=== PATIENT | male | born 1935 | race Caucasian/White ===

== ENCOUNTER 2017-07-17 22:10 | Emergency (ER) | payer MEDICARE, BC ==
[2017-07-17] MEDS ORDERED: Albuterol/Ipratropium 3.0-0.5 MG/3 ML Neb Soln NEB ONE (22:17)
[2017-07-17] MEDS ORDERED: methylPREDNISolone Sodium Succinate 125 MG/2 ML SDV IVPUSH ONE (22:17)
--- NOTE | 2017-07-17 22:24 | EDM.PDOC ---
ED HPI GENERAL MEDICAL PROBLEM - General Chief Complaint: Respiratory Problem Stated Complaint: COUGHING RATTLE IN CHEST, [id number] Time Seen by Provider: 07/17/17 22:21 Source of Information: Reports: Patient History Limitations: Reports: No Limitations - History of Present Illness INITIAL COMMENTS - FREE TEXT/NARRATIVE: sick for 1 week coughing not getting better feels worse. - Related Data Allergies Allergy/AdvReac Type Severity Reaction Status Date / Time iopamidol [From Isovue-M] Allergy Hives Verified 07/17/17 22:33 Tetracyclines Allergy Cannot Verified 07/17/17 22:33 Remember Home Meds: Home Meds Ca Carbonate/Vitamin D3/Vit K [Calcium + D Soft Chewable Tab] 1 tab PO DAILY 04/12 [History] Lisinopril [Prinivil] 10 mg PO DAILY 09/05/14 [History] Rosuvastatin Calcium [Crestor] 10 mg PO DAILY 09/05/14 [History] Lutein/Minerals/Vit A,C & E [Ocuvite] 1 cap PO DAILY 10/06/14 [History] Levothyroxine 75 mcg PO ACBREAKFAST 07/17/17 [History] Social & Family History - Tobacco Use Smoking Status *Q: Never Smoker Second Hand Smoke Exposure: No - Alcohol Use Days Per Week of Alcohol Use: 1 (socially) - Recreational Drug Use Recreational Drug Use: No - Living Situation & Occupation Living situation: Reports: , Alone Occupation: Retired ED ROS GENERAL - Review of Systems Review Of Systems: ROS reveals no pertinent complaints other than HPI. ED EXAM, GENERAL - Physical Exam Exam: See Below Exam Limited By: No Limitations General Appearance: Alert, WD/WN, Mild Distress, Other (cough spasm) Ears: Hearing Grossly Normal Throat/Mouth: Normal Voice, No Airway Compromise Head: Atraumatic Neck: Non-Tender, Full Range of Motion Respiratory/Chest: No Accessory Muscle Use, Rales, Rhonchi, Wheezing. No: Retractions, Splinting Cardiovascular: Regular Rate, Rhythm GI/Abdominal: Soft, Non-Tender Extremities: Pedal Edema, Other (1+) Neurological: Alert, Oriented, Normal Cognition, Normal Gait, No Motor/Sensory Deficits Psychiatric: Flat Affect Skin Exam: Warm, Dry, Normal Color Lymphatic: No Adenopathy Course - Vital Signs Last Recorded V/S: Last Vital Signs Temp 36.6 C 07/17/17 23:37 Pulse 80 07/17/17 23:37 Resp 20 07/17/17 23:37 BP 112/60 07/17/17 23:37 Pulse Ox 91 L 07/17/17 23:37 - Orders/Labs/Meds Orders: Active Orders 24 hr Category Date Time Status RT Aerosol Therapy [RC] ASDIRECTED Care 07/17/17 22:18 Active CULTURE BLOOD [BC] Stat Lab 07/17/17 22:18 Received Labs: Laboratory Tests 07/17/17 07/17/17 07/17/17 Range/Units 22:18 22:18 22:18 WBC 11.4 H (5.0-10.0) 10^3/uL RBC 4.52 L (4.6-6.2) 10^6/uL Hgb 13.8 L (14.0-18.0) g/dL Hct 41.2 (40.0-54.0) % MCV 91.2 (80-100) fL MCH 30.5 (27.0-34.0) pg MCHC 33.5 (33.0-35.0) g/dL Plt Count 223 (150-450) 10^3/uL Neut % (Auto) 58.1 (42.2-75.2) % Lymph % (Auto) 28.8 (20.5-50.1) % [place] % (Auto) 9.1 H (2-8) % Eos % (Auto) 3.7 H (1.0-3.0) % Baso % (Auto) 0.3 (0.0-1.0) % Sodium 138 (135-145) mmol/L Potassium 3.7 (3.6-5.0) mmol/L Chloride 102 (101-111) mmol/L Carbon Dioxide 27.0 (21.0-31.0) mmol/L Anion Gap 12.7 BUN 13 (7-18) mg/dL Creatinine 0.8 (0.6-1.3) mg/dL Est Cr Clr Drug Dosing 75.44 mL/min Estimated GFR (MDRD) > 60 BUN/Creatinine Ratio 16.25 Glucose 119 H (74-105) mg/dL Lactic Acid 1.6 (0.5-2.2) mmol/L Calcium 9.1 (8.4-10.2) mg/dl Total Bilirubin 0.5 (0.2-1.0) mg/dL AST 22 (10-42) IU/L ALT 11 (10-60) IU/L Alkaline Phosphatase 64 (42-121) IU/L Troponin I < 0.02 (0.00-0.02) ng/ml B-Natriuretic Peptide 51 (0-100) pg/ml Total Protein 7.5 (6.7-8.2) g/dl Albumin 4.2 (3.2-5.5) g/dl Globulin 3.3 Albumin/Globulin Ratio 1.27 Meds: Medications Discontinued Medications Generic Name Dose Route Start Last Admin Trade Name Freq PRN Reason Stop Dose Admin Albuterol/Ipratropium 3 ml 07/17/17 22:17 07/17/17 22:22 Duoneb 3.0-0.5 Mg/3 Ml NEB 07/17/17 22:18 3 ml ONETIME ONE Administration Ceftriaxone Sodium 1 gm 07/17/17 23:12 07/17/17 23:21 Rocephin IVPUSH 07/17/17 23:13 1 gm ONETIME ONE Administration Methylprednisolone Sodium Succinate 125 mg 07/17/17 22:17 07/17/17 22:25 Solu-Medrol IVPUSH 07/17/17 22:18 125 mg ONETIME ONE Administration - Re-Assessments/Exams Free Text/Narrative Re-Assessment/Exam: 07/17/17 23:14 results discussed with pt & family. pt feeling better s/p duoneb + IV solumed Departure - Departure Time of Disposition: 22:20 Disposition: Home, Self-Care 01 Condition: Good Clinical Impression: Acute bronchitis with bronchospasm - Discharge Information Instructions: Acute Bronchitis, [id number] Forms: ED Department Discharge Additional Instructions: 1) rest as much as possible 2) don't sleep flat at night 3) use humidifier in room 4) drink lots of liquids 5) recheck if there is any change or concern rx given; z-tanner medrol dospak albuterol 2.5mg solution tid prn - My Orders Last 24 Hours: My Active Orders 07/17/17 22:18 RT Aerosol Therapy [RC] ASDIRECTED CULTURE BLOOD [BC] Stat - Assessment/Plan Last 24 Hours: My Active Orders 07/17/17 22:18 RT Aerosol Therapy [RC] ASDIRECTED CULTURE BLOOD [BC] Stat
[2017-07-17 22:48] LABS: ANION GAP 12.7; CHLORIDE,CL 102 mmol/L (101-111); SODIUM,NA 138 mmol/L (135-145)
[2017-07-17] MEDS ORDERED: cefTRIAXone 1 GM Vial IVPUSH ONE (23:12)
[2017-07-17 23:38] VITALS: BP 112/60
== END 2017-07-17 23:46 | disposition home or self-care (01) ==
LOC: DL.ED 22:10
DX: J20.9 Acute bronchitis, unspecified (principal); R06.02 Shortness of breath; Z79.899 Other long term (current) drug therapy; Z88.1 Allergy status to other antibiotic agents; Z91.041 Radiographic dye allergy status
CPT/HCPCS: 36415; 71045; 80053; 83605; 83880; 84484; 85025; 87040; 94640; 96374; 99284; J0696; J2930

== ENCOUNTER 2018-10-01 20:08 | Emergency (ER) | payer MEDICARE, BC ==
[2018-10-01 20:19] VITALS: BP 154/94
--- NOTE | 2018-10-01 20:51 | EDM.PDOC ---
ED HPI GENERAL MEDICAL PROBLEM - General Chief Complaint: Respiratory Problem Stated Complaint: BREATHING TROUBLE Time Seen by Provider: 10/01/18 20:40 Source of Information: Reports: Patient History Limitations: Reports: No Limitations - History of Present Illness INITIAL COMMENTS - FREE TEXT/NARRATIVE: This 83 yo male patient reports to the ED due to increased weakness and a cough. The patient reports his weakness started today, but the cough has been getting worse over the past week. The patient reports he has not been into his primary care facility for his current symptoms. Onset: Today (weakness) Duration: Week(s): (1 week for cough) Location: Reports: Generalized Quality: Reports: Other Severity: Moderate Improves with: Reports: None Worsens with: Reports: None Associated Symptoms: Reports: Cough - Related Data Allergies Allergy/AdvReac Type Severity Reaction Status Date / Time iopamidol [From Isovue-M] Allergy Hives Verified 10/01/18 20:20 Tetracyclines Allergy Cannot Verified 10/01/18 20:20 Remember Home Meds: Home Meds Ca Carbonate/Vitamin D3/Vit K [Calcium + D Soft Chewable Tab] 1 tab PO DAILY 04/12 [History] Lisinopril [Prinivil] 10 mg PO DAILY 09/05/14 [History] Rosuvastatin Calcium [Crestor] 10 mg PO DAILY 09/05/14 [History] Lutein/Minerals/Vit A,C & E [Ocuvite] 1 cap PO DAILY 10/06/14 [History] Levothyroxine 75 mcg PO ACBREAKFAST 07/17/17 [History] Past Medical History Cardiovascular History: Reports: High Cholesterol, Hypertension Respiratory History: Reports: Bronchitis, Recurrent, Pneumonia, Recurrent Endocrine/Metabolic History: Reports: Hypothyroidism Social & Family History - Family History Family Medical History: Noncontributory - Tobacco Use Smoking Status *Q: Never Smoker Second Hand Smoke Exposure: No - Caffeine Use Caffeine Use: Reports: Coffee - Recreational Drug Use Recreational Drug Use: No - Living Situation & Occupation Living situation: Reports: , Alone Occupation: Retired ED ROS GENERAL - Review of Systems Review Of Systems: ROS reveals no pertinent complaints other than HPI. ED EXAM, GENERAL - Physical Exam Exam: See Below Exam Limited By: No Limitations General Appearance: Alert, WD/WN, Moderate Distress Eye Exam: Bilateral Eye: EOMI, Normal Inspection, PERRL Ears: Normal External Exam, Normal Canal, Hearing Grossly Normal, Normal TMs Nose: Normal Inspection, Normal Mucosa, No Blood Throat/Mouth: Normal Inspection, Normal Lips, Normal Teeth, Normal Gums, Normal Oropharynx, Normal Voice, No Airway Compromise Head: Atraumatic, Normocephalic Neck: Normal Inspection, Supple, Non-Tender, Full Range of Motion Respiratory/Chest: Decreased Breath Sounds, Rhonchi (diffuse) Cardiovascular: Normal Peripheral Pulses, Regular Rate, Rhythm, No Gallop, No JVD, No Murmur, No Rub GI/Abdominal: Normal Bowel Sounds, Soft, Non-Tender, No Organomegaly, No Distention, No Abnormal Bruit, No Mass (Male) Exam: Deferred Rectal (Males) Exam: Deferred Back Exam: Normal Inspection, Full Range of Motion, NT Extremities: Normal Range of Motion, Non-Tender, Normal Capillary Refill, Pedal Edema (2+) Neurological: Alert, Oriented, CN II-XII Intact, Normal Cognition, Normal Gait, Normal Reflexes, No Motor/Sensory Deficits Psychiatric: Normal Affect, Normal Mood Skin Exam: Warm, Dry, Intact, Normal Color, No Rash Lymphatic: No Adenopathy Course - Vital Signs Last Recorded V/S: Last Vital Signs Temp 36.8 C 10/01/18 21:13 Pulse 94 10/01/18 20:13 Resp 20 10/01/18 20:13 BP 154/94 H 10/01/18 20:13 Pulse Ox 96 10/01/18 20:21 - Orders/Labs/Meds Orders: Active Orders 24 hr Category Date Time Status EKG Documentation Completion [RC] URGENT Care 10/01/18 20:42 Ordered RT Aerosol Therapy [RC] ASDIRECTED Care 10/01/18 21:11 Ordered CULTURE BLOOD [BC] Stat Lab 10/01/18 20:16 Ordered Labs: Laboratory Tests 10/01/18 10/01/18 10/01/18 Range/Units 20:35 20:35 20:35 WBC 9.6 (5.0-10.0) 10^3/uL RBC 4.68 (4.6-6.2) 10^6/uL Hgb 14.6 (14.0-18.0) g/dL Hct 42.9 (40.0-54.0) % MCV 91.7 (80-100) fL MCH 31.2 (27.0-34.0) pg MCHC 34.0 (33.0-35.0) g/dL Plt Count 193 (150-450) 10^3/uL Neut % (Auto) 67.4 (42.2-75.2) % Lymph % (Auto) 20.6 (20.5-50.1) % [place] % (Auto) 9.8 H (2-8) % Eos % (Auto) 2.0 (1.0-3.0) % Baso % (Auto) 0.2 (0.0-1.0) % Sodium 135 (135-145) mmol/L Potassium 3.7 (3.6-5.0) mmol/L Chloride 100 L (101-111) mmol/L Carbon Dioxide 24.0 (21.0-31.0) mmol/L Anion Gap 14.7 BUN 14 (7-18) mg/dL Creatinine 0.8 (0.6-1.3) mg/dL Est Cr Clr Drug Dosing 74.10 mL/min Estimated GFR (MDRD) > 60 BUN/Creatinine Ratio 17.50 Glucose 119 H (74-105) mg/dL Lactic Acid 1.2 (0.5-2.2) mmol/L Calcium 8.9 (8.4-10.2) mg/dl Total Bilirubin 0.7 (0.2-1.0) mg/dL AST 26 (10-42) IU/L ALT 15 (10-60) IU/L Alkaline Phosphatase 65 (42-121) IU/L Troponin I (0.00-0.02) ng/ml B-Natriuretic Peptide (0-100) pg/ml Total Protein 7.5 (6.7-8.2) g/dl Albumin 4.2 (3.2-5.5) g/dl Globulin 3.3 Albumin/Globulin Ratio 1.27 10/01/18 10/01/18 Range/Units 20:35 20:35 WBC (5.0-10.0) 10^3/uL RBC (4.6-6.2) 10^6/uL Hgb (14.0-18.0) g/dL Hct (40.0-54.0) % MCV (80-100) fL MCH (27.0-34.0) pg MCHC (33.0-35.0) g/dL Plt Count (150-450) 10^3/uL Neut % (Auto) (42.2-75.2) % Lymph % (Auto) (20.5-50.1) % [place] % (Auto) (2-8) % Eos % (Auto) (1.0-3.0) % Baso % (Auto) (0.0-1.0) % Sodium (135-145) mmol/L Potassium (3.6-5.0) mmol/L Chloride (101-111) mmol/L Carbon Dioxide (21.0-31.0) mmol/L Anion Gap BUN (7-18) mg/dL Creatinine (0.6-1.3) mg/dL Est Cr Clr Drug Dosing mL/min Estimated GFR (MDRD) BUN/Creatinine Ratio Glucose (74-105) mg/dL Lactic Acid (0.5-2.2) mmol/L Calcium (8.4-10.2) mg/dl Total Bilirubin (0.2-1.0) mg/dL AST (10-42) IU/L ALT (10-60) IU/L Alkaline Phosphatase (42-121) IU/L Troponin I < 0.02 (0.00-0.02) ng/ml B-Natriuretic Peptide 55 (0-100) pg/ml Total Protein (6.7-8.2) g/dl Albumin (3.2-5.5) g/dl Globulin Albumin/Globulin Ratio Meds: Medications Discontinued Medications Generic Name Dose Route Start Last Admin Trade Name Freq PRN Reason Stop Dose Admin Albuterol/Ipratropium 3 ml 10/01/18 21:11 10/01/18 21:14 Duoneb 3.0-0.5 Mg/3 Ml NEB 10/01/18 21:12 3 ml ONETIME ONE Administration Levofloxacin/Dextrose 500 mg/ 100 mls @ 100 mls/hr 10/01/18 21:13 10/01/18 21 :18 Premix IV 10/01/18 22:12 100 mls/hr ONETIME ONE Administration - Re-Assessments/Exams Free Text/Narrative Re-Assessment/Exam: 10/01/18 21:40 The patient was advised of the examination, lab and x-ray results during the visit. The patient was encouraged to allow us to admit him to the hospital for IV antibiotics, but the patient would prefer to be treated on an outpatient basis. The patient was given a nebulizer treatment while in the ED and an IV dose of Levaquin while in the ED. Departure - Departure Time of Disposition: 22:20 Disposition: Home, Self-Care 01 Condition: Fair Clinical Impression: Bronchitis - Discharge Information *PRESCRIPTION DRUG MONITORING PROGRAM REVIEWED*: Not Applicable *COPY OF PRESCRIPTION DRUG MONITORING REPORT IN PATIENT TK: Not Applicable Instructions: Acute Bronchitis, Adult, [id number] Forms: ED Department Discharge Care Plan Goals: The patient was advised of the examination, lab and x-ray results during the visit. The patient was given an IV dose of Levaquin while in the ED. The patient was discharged with a script for Levaquin (500 mg) #5 to take 1 by mouth daily for 5 days. If the patient has any additional symptoms or concerns, the patient was advised to either return to the emergency department or visit his primary care facility. - My Orders Last 24 Hours: My Active Orders 10/01/18 20:16 CULTURE BLOOD [BC] Stat 10/01/18 20:42 EKG Documentation Completion [RC] URGENT 10/01/18 21:11 RT Aerosol Therapy [RC] ASDIRECTED - Assessment/Plan Last 24 Hours: My Active Orders 10/01/18 20:16 CULTURE BLOOD [BC] Stat 10/01/18 20:42 EKG Documentation Completion [RC] URGENT 10/01/18 21:11 RT Aerosol Therapy [RC] ASDIRECTED
[2018-10-01 21:01] LABS: ANION GAP 14.7; CHLORIDE,CL 100 mmol/L (101-111); SODIUM,NA 135 mmol/L (135-145)
[2018-10-01] MEDS ORDERED: Albuterol/Ipratropium 3.0-0.5 MG/3 ML Neb Soln NEB ONE (21:11)
[2018-10-01] MEDS ORDERED: Levofloxacin/Dextrose 5%-Water 500 MG in Premix Bag 1 BAG IV ONE (21:13)
== END 2018-10-01 22:25 | disposition home or self-care (01) ==
LOC: DL.ED 20:08
DX: J40 Bronchitis, not specified as acute or chronic (principal); I10 Essential (primary) hypertension; E03.9 Hypothyroidism, unspecified; E78.00 Pure hypercholesterolemia, unspecified; Z79.899 Other long term (current) drug therapy; Z88.1 Allergy status to other antibiotic agents; Z88.8 Allergy status to other drugs, medicaments and biological substances
CPT/HCPCS: 36415; 71046; 80053; 83605; 83880; 84484; 85025; 87040; 87804; 93005; 96365; 99283; J1956; J7620-GY

== ENCOUNTER 2019-04-04 17:50 | Observation (INO) | payer MEDICARE, BC ==
[2019-04-04] MEDS ORDERED: Sodium Chloride 0.9% 10 ML Syringe FLUSH PRN ×3 (18:15→20:47)
[2019-04-04 19:02] LABS: ANION GAP 13.8; CHLORIDE,CL 97 mmol/L (101-111); SODIUM,NA 135 mmol/L (135-145)
[2019-04-04] MEDS ORDERED: Albuterol/Ipratropium 3.0-0.5 MG/3 ML Neb Soln NEB ONE (19:16)
[2019-04-04] MEDS ORDERED: cefTRIAXone 1 GM in Sodium Chloride 0.9% 50 ML IV ONE (20:13)
[2019-04-04] MEDS ORDERED: Acetaminophen 325 MG Tab PO PRN (20:46)
[2019-04-04] MEDS ORDERED: Ondansetron 4 MG/2 ML SDV IV PRN (20:46)
[2019-04-04] MEDS ORDERED: [UNRECOGNIZED DRUG - OTHER] PO PRN (20:48)
[2019-04-04] MEDS ORDERED: D METHORPHAN PO PRN (20:48)
[2019-04-04] MEDS ORDERED: ACETAMINOPHEN PO PRN (20:48)
--- NOTE | 2019-04-04 21:03 | PCM.HP ---
H&P History of Present Illness - General Date of Service: 04/04/19 Admit Problem/Dx: Admission Diagnosis/Problem Admission Diagnosis/Problem Pneumonia Source of Information: Patient History Limitations: Reports: No Limitations - History of Present Illness Initial Comments - Free Text/Narative: 83 yo M with PMH of HTN, HLD, hypothyroidism, mild dementia who p/w shortness of breath, cough Cough and shortness of breath started two weeks ago Cough is associated with scanty white sputum Also associated pleuritic chest pain No fever, no chills or rigors No abdominal pain, no n/v, no urinary symptoms In the ED, labwork showed leucocytosis and CXR showed right middle lobe opacity Patient was not hypoxic on room air. Chest Pain Score (Numeric/FACES): 5 - Related Data Allergies/Adverse Reactions: Allergies Allergy/AdvReac Type Severity Reaction Status Date / Time iopamidol [From Isovue-M] Allergy Hives Verified 04/04/19 18:02 Tetracyclines Allergy Cannot Verified 04/04/19 18:02 Remember Home Medications: Home Meds Lisinopril [Prinivil] 10 mg PO DAILY 09/05/14 [History] Rosuvastatin Calcium [Crestor] 10 mg PO DAILY 09/05/14 [History] Levothyroxine 75 mcg PO ACBREAKFAST 07/17/17 [History] Azithromycin 250 mg PO DAILY 04/04/19 [History] Benzonatate [Tessalon Perle] 100 mg PO DAILY 04/04/19 [History] D-Methorphan/PE/Acetaminophen [Daytime Cold-Flu Relief Liquid] 30 ml PO Q6H 01/14 [History] Past Medical History HEENT History: Reports: None Cardiovascular History: Reports: High Cholesterol, Hypertension Respiratory History: Reports: Bronchitis, Recurrent, Pneumonia, Recurrent Gastrointestinal History: Reports: None Genitourinary History: Reports: None Musculoskeletal History: Reports: None Neurological History: Reports: None Psychiatric History: Reports: None Endocrine/Metabolic History: Reports: Hypothyroidism Hematologic History: Reports: None Immunologic History: Reports: None Oncologic (Cancer) History: Reports: None Dermatologic History: Reports: None - Infectious Disease History Infectious Disease History: Reports: None - Past Surgical History Head Surgeries/Procedures: Reports: None GI Surgical History: Reports: Hernia, Abdominal Social & Family History - Family History Family Medical History: Noncontributory - Tobacco Use Smoking Status *Q: Never Smoker - Caffeine Use Caffeine Use: Reports: Coffee - Recreational Drug Use Recreational Drug Use: No - Living Situation & Occupation Living situation: Reports: , Alone Occupation: Retired H&P Review of Systems - Review of Systems: Review Of Systems: See Below General: Denies: Fever HEENT: Reports: No Symptoms Pulmonary: Reports: Shortness of Breath, Pleuritic Chest Pain, Cough Cardiovascular: Reports: No Symptoms Gastrointestinal: Reports: No Symptoms Genitourinary: Reports: No Symptoms Musculoskeletal: Reports: No Symptoms Skin: Reports: No Symptoms Neurological: Reports: No Symptoms Exam - Exam Exam: See Below - Vital Signs Vital Signs: Last Vital Signs Temp 36.1 C 04/04/19 17:58 Pulse 71 04/04/19 17:58 Resp 20 04/04/19 17:58 BP 134/77 04/04/19 17:58 Pulse Ox 99 04/04/19 17:58 Weight: 83.37 kg - Exam General: Alert, Oriented HEENT: Conjunctiva Clear, Pupils Equal, Pupils Reactive Neck: Supple, Trachea Midline Lungs: Clear to Auscultation, Normal Respiratory Effort Cardiovascular: Regular Rate, Regular Rhythm GI/Abdominal Exam: Normal Bowel Sounds, Soft, Non-Tender, No Organomegaly Extremities: Normal Inspection, Normal Range of Motion, Non-Tender, No Pedal Edema - Patient Data Lab Results Last 24 hrs: Laboratory Results - last 24 hr 04/04/19 04/04/19 04/04/19 Range/Units 18:35 18:35 18:35 WBC 11.5 H (5.0-10.0) 10^3/uL RBC 4.46 L (4.6-6.2) 10^6/uL Hgb 13.6 L (14.0-18.0) g/dL Hct 40.7 (40.0-54.0) % MCV 91.3 (80-100) fL MCH 30.5 (27.0-34.0) pg MCHC 33.4 (33.0-35.0) g/dL Plt Count 218 (150-450) 10^3/uL Neut % (Auto) 68.7 (42.2-75.2) % Lymph % (Auto) 15.8 L (20.5-50.1) % [place] % (Auto) 11.2 H (2-8) % Eos % (Auto) 3.9 H (1.0-3.0) % Baso % (Auto) 0.4 (0.0-1.0) % Sodium 135 (135-145) mmol/L Potassium 3.8 (3.6-5.0) mmol/L Chloride 97 L (101-111) mmol/L Carbon Dioxide 28.0 (21.0-31.0) mmol/L Anion Gap 13.8 BUN 14 (7-18) mg/dL Creatinine 0.9 (0.6-1.3) mg/dL Est Cr Clr Drug Dosing 65.86 mL/min Estimated GFR (MDRD) > 60 BUN/Creatinine Ratio 15.55 Glucose 109 H (74-105) mg/dL Lactic Acid 1.1 (0.5-2.2) mmol/L Calcium 8.5 (8.4-10.2) mg/dl Total Bilirubin 0.6 (0.2-1.0) mg/dL AST 15 (10-42) IU/L ALT 9 L (10-60) IU/L Alkaline Phosphatase 54 (42-121) IU/L Troponin I < 0.02 (0.00-0.02) ng/ml B-Natriuretic Peptide 32 (0-100) pg/ml Total Protein 7.0 (6.7-8.2) g/dl Albumin 3.7 (3.2-5.5) g/dl Globulin 3.3 Albumin/Globulin Ratio 1.12 Urine Color (YELLOW) Urine Appearance (CLEAR) Urine pH (5.0-9.0) Ur Specific [place] (1.005-1.030) Urine Protein (NEGATIVE) Urine Glucose (UA) (NEGATIVE) Urine Ketones (NEGATIVE) Urine Occult Blood (NEGATIVE) Urine Nitrite (NEGATIVE) Urine Bilirubin (NEGATIVE) Urine Urobilinogen (0.2-1.0) mg/dL Ur Leukocyte Esterase (NEGATIVE) 04/04/19 Range/Units 19:38 WBC (5.0-10.0) 10^3/uL RBC (4.6-6.2) 10^6/uL Hgb (14.0-18.0) g/dL Hct (40.0-54.0) % MCV (80-100) fL MCH (27.0-34.0) pg MCHC (33.0-35.0) g/dL Plt Count (150-450) 10^3/uL Neut % (Auto) (42.2-75.2) % Lymph % (Auto) (20.5-50.1) % [place] % (Auto) (2-8) % Eos % (Auto) (1.0-3.0) % Baso % (Auto) (0.0-1.0) % Sodium (135-145) mmol/L Potassium (3.6-5.0) mmol/L Chloride (101-111) mmol/L Carbon Dioxide (21.0-31.0) mmol/L Anion Gap BUN (7-18) mg/dL Creatinine (0.6-1.3) mg/dL Est Cr Clr Drug Dosing mL/min Estimated GFR (MDRD) BUN/Creatinine Ratio Glucose (74-105) mg/dL Lactic Acid (0.5-2.2) mmol/L Calcium (8.4-10.2) mg/dl Total Bilirubin (0.2-1.0) mg/dL AST (10-42) IU/L ALT (10-60) IU/L Alkaline Phosphatase (42-121) IU/L Troponin I (0.00-0.02) ng/ml B-Natriuretic Peptide (0-100) pg/ml Total Protein (6.7-8.2) g/dl Albumin (3.2-5.5) g/dl Globulin Albumin/Globulin Ratio Urine Color Yellow (YELLOW) Urine Appearance Clear (CLEAR) Urine pH 5.5 (5.0-9.0) Ur Specific [place] <= 1.005 (1.005-1.030) Urine Protein Negative (NEGATIVE) Urine Glucose (UA) Negative (NEGATIVE) Urine Ketones Negative (NEGATIVE) Urine Occult Blood Negative (NEGATIVE) Urine Nitrite Negative (NEGATIVE) Urine Bilirubin Negative (NEGATIVE) Urine Urobilinogen 0.2 (0.2-1.0) mg/dL Ur Leukocyte Esterase Negative (NEGATIVE) Result Diagrams: 04/04/19 18:35 04/04/19 18:35 Problem List Initiated/Reviewed/Updated: Yes Orders Last 24hrs: Active Orders 24 hr Category Date Time Status Admission Diagnosis [ADT] Routine ADT 04/04/19 20:11 Ordered Admission Status [Patient Status] [ADT] Routine ADT 04/04/19 20:11 Active Ambulate [RC] ASDIRECTED Care 04/04/19 20:48 Active EKG 12 Lead [EKG Documentation Completion] [RC] STAT Care 04/04/19 18:04 Active EKG 12 Lead [EKG Documentation Completion] [RC] STAT Care 04/04/19 18:15 Active Height and Weight [RC] DAILY Care 04/04/19 20:48 Active Oxygen Therapy [RC] PRN Care 04/04/19 20:48 Active Peripheral IV Care [RC] . DIRECTED Care 04/04/19 18:16 Active Peripheral IV Care [RC] . DIRECTED Care 04/04/19 20:48 Active RT Aerosol Therapy [RC] ASDIRECTED Care 04/04/19 19:16 Active Up With Assistance [RC] ASDIRECTED Care 04/04/19 20:48 Active VTE/DVT Education [RC] PER UNIT ROUTINE Care 04/04/19 20:48 Active Vital Signs [RC] Q4H Care 04/04/19 20:48 Active Regular Diet [DIET] Diet 04/04/19 Breakfast Active Chest 2V [CR] Stat Exams 04/04/19 18:15 Taken BASIC METABOLIC PANEL,BMP [CHEM] AM Lab 04/05/19 05:11 Ordered BASIC METABOLIC PANEL,BMP [CHEM] AM Lab 04/06/19 05:11 Ordered BASIC METABOLIC PANEL,BMP [CHEM] AM Lab 04/07/19 05:11 Ordered CBC W/O DIFF,HEMOGRAM [HEME] AM Lab 04/05/19 05:11 Ordered CBC W/O DIFF,HEMOGRAM [HEME] AM Lab 04/06/19 05:11 Ordered CBC W/O DIFF,HEMOGRAM [HEME] AM Lab 04/07/19 05:11 Ordered CULTURE BLOOD [BC] Stat Lab 04/04/19 18:15 Received CULTURE BLOOD [BC] Stat Lab 04/04/19 18:35 Received CULTURE SPUTUM + SMEAR [RM] Stat Lab 04/04/19 19:15 Ordered Acetaminophen [Tylenol] Med 04/04/19 20:46 Ordered 650 mg PO Q4H PRN Azithromycin [Zithromax] Med 04/04/19 20:47 Ordered 500 mg PO DAILY Benzonatate [Tessalon Perles] Med 04/04/19 20:48 Ordered 100 mg PO TID PRN D-Methorphan/PE/Acetaminophen [Daytime Cold-Flu Relief Med 04/04/19 20:48 Ordered Liquid] 30 ml PO Q6H PRN Enoxaparin [Lovenox] Med 04/04/19 20:47 Ordered 40 mg SUBCUT DAILY Levothyroxine Med 04/05/19 06:00 Ordered 75 mcg PO ACBREAKFAST Lisinopril [Prinivil] Med 04/05/19 09:00 Ordered 10 mg PO DAILY Ondansetron [Zofran] Med 04/04/19 20:46 Ordered 4 mg IV Q4H PRN Rosuvastatin [Crestor] Med 04/05/19 09:00 Ordered 10 mg PO DAILY Sodium Chloride 0.9% [Normal Saline] 1,000 ml Med 04/04/19 21:00 Ordered IV ASDIRECTED Sodium Chloride 0.9% [Saline Flush] Med 04/04/19 18:15 Active 10 ml FLUSH ASDIRECTED PRN Sodium Chloride 0.9% [Saline Flush] Med 04/04/19 20:47 Ordered 10 ml FLUSH ASDIRECTED PRN Sodium Chloride 0.9% [Saline Flush] Med 04/04/19 20:47 Ordered 10 ml FLUSH ASDIRECTED PRN cefTRIAXone [Rocephin] 1 gm Med 04/05/19 09:00 Ordered Sodium Chloride 0.9% [Normal Saline] 50 ml IV DAILY cefTRIAXone [Rocephin] 1 gm Med 04/04/19 20:13 Active Sodium Chloride 0.9% [Normal Saline] 50 ml IV ONETIME Blood Culture x2 Reflex Set [OM.PC] Stat Oth 04/04/19 18:15 Ordered Peripheral IV Insertion Adult [OM.PC] Routine Oth 04/04/19 20:48 Ordered Peripheral IV Insertion Adult [OM.PC] Stat Oth 04/04/19 18:15 Ordered Saline Lock Insert [OM.PC] Routine Oth 04/04/19 20:48 Ordered Resuscitation Status Routine Resus Stat 04/04/19 20:47 Ordered Medication Orders Acetaminophen (Tylenol) 650 mg PO Q4H PRN PRN Reason: Pain/Fever Azithromycin (Zithromax) 500 mg PO DAILY [facility] Benzonatate (Tessalon Perles) 100 mg PO TID PRN PRN Reason: Cough Enoxaparin Sodium (Lovenox) 40 mg SUBCUT DAILY [facility] Ceftriaxone Sodium 1 gm/ (Sodium Chloride) 50 mls @ 50 mls/hr IV ONETIME ONE Stop: 04/04/19 21:12 Last Admin: 04/04/19 20:21 Dose: 50 mls/hr Ceftriaxone Sodium 1 gm/ (Sodium Chloride) 50 mls @ 50 mls/hr IV DAILY [facility] Sodium Chloride (Normal Saline) 1,000 mls @ 100 mls/hr IV ASDIRECTED [facility] Levothyroxine Sodium (Levothyroxine) 75 mcg PO ACBREAKFAST [facility] Lisinopril (Prinivil) 10 mg PO DAILY [facility] Non-Formulary Medication (D-Methorphan/Pe/Acetaminophen [Daytime Cold-Flu Relief Liquid]) 30 ml PO Q6H PRN PRN Reason: Congestion Ondansetron HCl (Zofran) 4 mg IV Q4H PRN PRN Reason: Nausea/Vomiting Rosuvastatin Calcium (Crestor) 10 mg PO DAILY [facility] Sodium Chloride (Saline Flush) 10 ml FLUSH ASDIRECTED PRN PRN Reason: Keep Vein Open Last Admin: 04/04/19 18:19 Dose: 10 ml Sodium Chloride (Saline Flush) 10 ml FLUSH ASDIRECTED PRN PRN Reason: Keep Vein Open Sodium Chloride (Saline Flush) 10 ml FLUSH ASDIRECTED PRN PRN Reason: Keep Vein Open Assessment/Plan Comment:: #Community acquired pneumonia leucocytosis, RML opacity on CXR no fever, no hypoxia uncomplicated pneumonia f/u bld cx, sputum cx IV ceftriaxone + oral azithromycin IV fluid hydration monitor vital signs closely #HTN continue home meds: lisinopril #HLD continue statin #Hypothyroidism continue levothyroxine #DVT ppx SC lovenox Full code
[2019-04-04] MEDS: Benzonatate 100 MG Cap PO PRN (21:14)
[2019-04-04] MEDS: Azithromycin 250 MG Tab PO SCH (21:14)
[2019-04-04] MEDS: Sodium Chloride 0.9% 1,000 ML IV SCH (21:14)
[2019-04-04] MEDS: Enoxaparin 40 MG/0.4 ML Syringe SUBCUT SCH (21:14)
--- NOTE | 2019-04-05 06:18 | EDM.PDOC ---
Scribed by Carmen Block 04/04/19 192 for Margarita Alvarado PA-C <Jony Lawrence - Last Filed: 04/04/19 19:26> ED HPI GENERAL MEDICAL PROBLEM - General Chief Complaint: Respiratory Problem Stated Complaint: COUGH/CHEST PAIN Time Seen by Provider: 04/04/19 18:05 Chest Pain Score (Numeric/FACES): 5 - Related Data Allergies Allergy/AdvReac Type Severity Reaction Status Date / Time iopamidol [From Isovue-M] Allergy Hives Verified 04/04/19 18:02 Tetracyclines Allergy Cannot Verified 04/04/19 18:02 Remember Home Meds: Home Meds Lisinopril [Prinivil] 10 mg PO DAILY 09/05/14 [History] Rosuvastatin Calcium [Crestor] 10 mg PO DAILY 09/05/14 [History] Levothyroxine 75 mcg PO ACBREAKFAST 07/17/17 [History] Azithromycin 250 mg PO DAILY 04/04/19 [History] Benzonatate [Tessalon Perle] 100 mg PO DAILY 04/04/19 [History] D-Methorphan/PE/Acetaminophen [Daytime Cold-Flu Relief Liquid] 30 ml PO Q6H 01/14 [History] Course - Vital Signs Last Recorded V/S: Last Vital Signs Temp 98.5 F 04/05/19 04:00 Pulse 70 04/05/19 04:00 Resp 20 04/05/19 04:00 BP 142/67 H 04/05/19 04:00 Pulse Ox 95 04/05/19 04:00 - Orders/Labs/Meds Orders: Active Orders 24 hr Category Date Time Status Peripheral IV Care [RC] 09,21 Care 04/04/19 18:16 Active RT Aerosol Therapy [RC] ASDIRECTED Care 04/04/19 19:16 Active Chest 2V [CR] Stat Exams 04/04/19 18:15 Taken CULTURE BLOOD [BC] Stat Lab 04/04/19 18:15 Received CULTURE BLOOD [BC] Stat Lab 04/04/19 18:35 Received CULTURE SPUTUM + SMEAR [RM] Stat Lab 04/04/19 19:15 Ordered Sodium Chloride 0.9% [Saline Flush] Med 04/04/19 18:15 Active 10 ml FLUSH ASDIRECTED PRN Blood Culture x2 Reflex Set [OM.PC] Stat Oth 04/04/19 18:15 Ordered Peripheral IV Insertion Adult [OM.PC] Stat Oth 04/04/19 18:15 Ordered Medication Orders Acetaminophen (Tylenol) 650 mg PO Q4H PRN PRN Reason: Pain/Fever Azithromycin (Zithromax) 500 mg PO BEDTIME [facility] Last Admin: 04/04/19 21:14 Dose: 500 mg Benzonatate (Tessalon Perles) 100 mg PO TID PRN PRN Reason: Cough Last Admin: 04/04/19 21:14 Dose: 100 mg Enoxaparin Sodium (Lovenox) 40 mg SUBCUT DAILY [facility] Last Admin: 04/04/19 21:14 Dose: 40 mg Ceftriaxone Sodium 1 gm/ (Sodium Chloride) 50 mls @ 50 mls/hr IV DAILY [facility] Sodium Chloride (Normal Saline) 1,000 mls @ 100 mls/hr IV ASDIRECTED [facility] Last Admin: 04/04/19 21:14 Dose: 100 mls/hr Levothyroxine Sodium (Levothyroxine) 75 mcg PO ACBREAKFAST [facility] Lisinopril (Prinivil) 10 mg PO DAILY [facility] Non-Formulary Medication (D-Methorphan/Pe/Acetaminophen [Daytime Cold-Flu Relief Liquid]) 30 ml PO Q6H PRN PRN Reason: Congestion Ondansetron HCl (Zofran) 4 mg IV Q4H PRN PRN Reason: Nausea/Vomiting Rosuvastatin Calcium (Crestor) 10 mg PO DAILY [facility] Sodium Chloride (Saline Flush) 10 ml FLUSH ASDIRECTED PRN PRN Reason: Keep Vein Open Last Admin: 04/04/19 18:19 Dose: 10 ml Sodium Chloride (Saline Flush) 10 ml FLUSH ASDIRECTED PRN PRN Reason: Keep Vein Open Sodium Chloride (Saline Flush) 10 ml FLUSH ASDIRECTED PRN PRN Reason: Keep Vein Open Labs: Laboratory Tests 04/04/19 04/04/19 04/04/19 Range/Units 18:35 18:35 18:35 WBC 11.5 H (5.0-10.0) 10^3/uL RBC 4.46 L (4.6-6.2) 10^6/uL Hgb 13.6 L (14.0-18.0) g/dL Hct 40.7 (40.0-54.0) % MCV 91.3 (80-100) fL MCH 30.5 (27.0-34.0) pg MCHC 33.4 (33.0-35.0) g/dL Plt Count 218 (150-450) 10^3/uL Neut % (Auto) 68.7 (42.2-75.2) % Lymph % (Auto) 15.8 L (20.5-50.1) % [place] % (Auto) 11.2 H (2-8) % Eos % (Auto) 3.9 H (1.0-3.0) % Baso % (Auto) 0.4 (0.0-1.0) % Sodium 135 (135-145) mmol/L Potassium 3.8 (3.6-5.0) mmol/L Chloride 97 L (101-111) mmol/L Carbon Dioxide 28.0 (21.0-31.0) mmol/L Anion Gap 13.8 BUN 14 (7-18) mg/dL Creatinine 0.9 (0.6-1.3) mg/dL Est Cr Clr Drug Dosing 65.86 mL/min Estimated GFR (MDRD) > 60 BUN/Creatinine Ratio 15.55 Glucose 109 H (74-105) mg/dL Lactic Acid 1.1 (0.5-2.2) mmol/L Calcium 8.5 (8.4-10.2) mg/dl Total Bilirubin 0.6 (0.2-1.0) mg/dL AST 15 (10-42) IU/L ALT 9 L (10-60) IU/L Alkaline Phosphatase 54 (42-121) IU/L Troponin I < 0.02 (0.00-0.02) ng/ml B-Natriuretic Peptide 32 (0-100) pg/ml Total Protein 7.0 (6.7-8.2) g/dl Albumin 3.7 (3.2-5.5) g/dl Globulin 3.3 Albumin/Globulin Ratio 1.12 Urine Color (YELLOW) Urine Appearance (CLEAR) Urine pH (5.0-9.0) Ur Specific [place] (1.005-1.030) Urine Protein (NEGATIVE) Urine Glucose (UA) (NEGATIVE) Urine Ketones (NEGATIVE) Urine Occult Blood (NEGATIVE) Urine Nitrite (NEGATIVE) Urine Bilirubin (NEGATIVE) Urine Urobilinogen (0.2-1.0) mg/dL Ur Leukocyte Esterase (NEGATIVE) 04/04/19 Range/Units 19:38 WBC (5.0-10.0) 10^3/uL RBC (4.6-6.2) 10^6/uL Hgb (14.0-18.0) g/dL Hct (40.0-54.0) % MCV (80-100) fL MCH (27.0-34.0) pg MCHC (33.0-35.0) g/dL Plt Count (150-450) 10^3/uL Neut % (Auto) (42.2-75.2) % Lymph % (Auto) (20.5-50.1) % [place] % (Auto) (2-8) % Eos % (Auto) (1.0-3.0) % Baso % (Auto) (0.0-1.0) % Sodium (135-145) mmol/L Potassium (3.6-5.0) mmol/L Chloride (101-111) mmol/L Carbon Dioxide (21.0-31.0) mmol/L Anion Gap BUN (7-18) mg/dL Creatinine (0.6-1.3) mg/dL Est Cr Clr Drug Dosing mL/min Estimated GFR (MDRD) BUN/Creatinine Ratio Glucose (74-105) mg/dL Lactic Acid (0.5-2.2) mmol/L Calcium (8.4-10.2) mg/dl Total Bilirubin (0.2-1.0) mg/dL AST (10-42) IU/L ALT (10-60) IU/L Alkaline Phosphatase (42-121) IU/L Troponin I (0.00-0.02) ng/ml B-Natriuretic Peptide (0-100) pg/ml Total Protein (6.7-8.2) g/dl Albumin (3.2-5.5) g/dl Globulin Albumin/Globulin Ratio Urine Color Yellow (YELLOW) Urine Appearance Clear (CLEAR) Urine pH 5.5 (5.0-9.0) Ur Specific [place] <= 1.005 (1.005-1.030) Urine Protein Negative (NEGATIVE) Urine Glucose (UA) Negative (NEGATIVE) Urine Ketones Negative (NEGATIVE) Urine Occult Blood Negative (NEGATIVE) Urine Nitrite Negative (NEGATIVE) Urine Bilirubin Negative (NEGATIVE) Urine Urobilinogen 0.2 (0.2-1.0) mg/dL Ur Leukocyte Esterase Negative (NEGATIVE) Meds: Medications Generic Name Dose Route Start Last Admin Trade Name Alecia PRN Reason Stop Dose Admin Acetaminophen 650 mg 04/04/19 20:46 Tylenol PO Q4H PRN Pain/Fever Azithromycin 500 mg 04/04/19 21:00 04/04/19 21:14 Zithromax PO 500 mg BEDTIME [facility] Administration Benzonatate 100 mg 04/04/19 20:48 04/04/19 21:14 Tessalon Perles PO 100 mg TID PRN Administration Cough Enoxaparin Sodium 40 mg 04/04/19 20:47 04/04/19 21:14 Lovenox SUBCUT 40 mg DAILY [facility] Administration Ceftriaxone Sodium 1 gm/ 50 mls @ 50 mls/hr 04/05/19 09:00 Sodium Chloride IV DAILY [facility] Sodium Chloride 1,000 mls @ 100 mls/hr 04/04/19 21:00 04/04/19 21:14 Normal Saline IV 100 mls/hr ASDIRECTED [facility] Administration Levothyroxine Sodium 75 mcg 04/05/19 06:00 Levothyroxine PO ACBREAKFAST [facility] Lisinopril 10 mg 04/05/19 09:00 Prinivil PO DAILY [facility] Non-Formulary Medication 30 ml 04/04/19 20:48 D-Methorphan/Pe/Acetaminophen [Daytime Cold-Flu Relief Liquid] PO Q6H PRN Congestion Ondansetron HCl 4 mg 04/04/19 20:46 Zofran IV Q4H PRN Nausea/Vomiting Rosuvastatin Calcium 10 mg 04/05/19 09:00 Crestor PO DAILY [facility] Sodium Chloride 10 ml 04/04/19 18:15 04/04/19 18:19 Saline Flush FLUSH 10 ml ASDIRECTED PRN Administration Keep Vein Open Sodium Chloride 10 ml 04/04/19 20:47 Saline Flush FLUSH ASDIRECTED PRN Keep Vein Open Sodium Chloride 10 ml 04/04/19 20:47 Saline Flush FLUSH ASDIRECTED PRN Keep Vein Open Discontinued Medications Generic Name Dose Route Start Last Admin Trade Name Alecia PRN Reason Stop Dose Admin Albuterol/Ipratropium 3 ml 04/04/19 19:16 10/07/19 19:22 Duoneb 3.0-0.5 Mg/3 Ml NEB 04/04/19 19:17 3 ml ONETIME ONE Administration Ceftriaxone Sodium 1 gm/ 50 mls @ 50 mls/hr 04/04/19 20:13 04/04/19 20:21 Sodium Chloride IV 04/04/19 21:12 50 mls/hr ONETIME ONE Administration - Re-Assessments/Exams Free Text/Narrative Re-Assessment/Exam: 04/04/19 19:25 Care of pt transferred to [facility] at 1900hr shift change. Departure - Departure Disposition: Refer to Observation Clinical Impression: Pneumonia Qualifiers: Pneumonia type: due to unspecified organism Laterality: right Lung location: middle lobe of lung Qualified Code(s): J18.1 - Lobar pneumonia, unspecified organism - Discharge Information - My Orders Last 24 Hours: My Active Orders 04/04/19 19:15 CULTURE SPUTUM + SMEAR [RM] Stat 04/04/19 19:16 RT Aerosol Therapy [RC] ASDIRECTED - Assessment/Plan Last 24 Hours: My Active Orders 04/04/19 19:15 CULTURE SPUTUM + SMEAR [RM] Stat 04/04/19 19:16 RT Aerosol Therapy [RC] ASDIRECTED <Margarita Alvarado - Last Filed: 04/05/19 06:17> ED HPI GENERAL MEDICAL PROBLEM - General Source of Information: Reports: Patient, RN, RN Notes Reviewed History Limitations: Reports: No Limitations - History of Present Illness INITIAL COMMENTS - FREE TEXT/NARRATIVE: Patient presents to ER via POV with a cough for 2 weeks. Patient complains of cough and chest congestion. Patient was into [facility] on Thursday and prescribed Z-tanner. Symptoms are getting worse with continued cough. Patient complains of chest pain with cough. Legs seem weak. Patient denies SOB. Onset: Gradual Onset Date: 03/28/19 Duration: Constant Location: Reports: Chest Quality: Reports: Ache Severity: Moderate Improves with: Reports: None Worsens with: Reports: None Associated Symptoms: Reports: No Other Symptoms Treatments FORENSIC SERGEANT: Reports: EKG, IV/IO Past Medical History HEENT History: Reports: None Cardiovascular History: Reports: High Cholesterol, Hypertension Respiratory History: Reports: Bronchitis, Recurrent, Pneumonia, Recurrent Gastrointestinal History: Reports: None Genitourinary History: Reports: None Musculoskeletal History: Reports: None Neurological History: Reports: None Psychiatric History: Reports: None Endocrine/Metabolic History: Reports: Hypothyroidism Hematologic History: Reports: None Immunologic History: Reports: None Oncologic (Cancer) History: Reports: None Dermatologic History: Reports: None - Infectious Disease History Infectious Disease History: Reports: None - Past Surgical History Head Surgeries/Procedures: Reports: None GI Surgical History: Reports: Hernia, Abdominal Social & Family History - Family History Family Medical History: Noncontributory - Caffeine Use Caffeine Use: Reports: Coffee - Living Situation & Occupation Living situation: Reports: , Alone Occupation: Retired ED ROS GENERAL - Review of Systems Review Of Systems: ROS reveals no pertinent complaints other than HPI. ED EXAM, GENERAL - Physical Exam Exam: See Below Exam Limited By: No Limitations General Appearance: Alert, Mild Distress Eye Exam: Bilateral Eye: EOMI Ears: Normal External Exam Nose: Normal Inspection Head: Atraumatic, Normocephalic Neck: Normal Inspection, Full Range of Motion Respiratory/Chest: Decreased Breath Sounds, Crackles, Wheezing (bilateral greater left anterior), Other (frequent loose nonproductive cough) Cardiovascular: Normal Peripheral Pulses, Regular Rate, Rhythm GI/Abdominal: Normal Bowel Sounds, Soft, Non-Tender Extremities: No Pedal Edema Neurological: Alert, Oriented, Normal Cognition Psychiatric: Normal Affect Skin Exam: Warm, Dry, Intact, Normal Color EKG INTERPRETATION EKG Date: 04/04/19 Time: 18:00 Rhythm: Other (sinus rhythm) Rate (Beats/Min): 76 [place]: Normal P-Wave: Present QRS: Normal ST-T: Normal QT: Normal Course - Orders/Labs/Meds Orders: Active Orders 24 hr Category Date Time Status Peripheral IV Care [RC] 09,21 Care 04/04/19 18:16 Active RT Aerosol Therapy [RC] ASDIRECTED Care 04/04/19 19:16 Active Chest 2V [CR] Stat Exams 04/04/19 18:15 Taken CULTURE BLOOD [BC] Stat Lab 04/04/19 18:15 Received CULTURE BLOOD [BC] Stat Lab 04/04/19 18:35 Received CULTURE SPUTUM + SMEAR [RM] Stat Lab 04/04/19 19:15 Ordered Sodium Chloride 0.9% [Saline Flush] Med 04/04/19 18:15 Active 10 ml FLUSH ASDIRECTED PRN Blood Culture x2 Reflex Set [OM.PC] Stat Oth 04/04/19 18:15 Ordered Peripheral IV Insertion Adult [OM.PC] Stat Oth 04/04/19 18:15 Ordered Medication Orders Acetaminophen (Tylenol) 650 mg PO Q4H PRN PRN Reason: Pain/Fever Azithromycin (Zithromax) 500 mg PO BEDTIME [facility] Last Admin: 04/04/19 21:14 Dose: 500 mg Benzonatate (Tessalon Perles) 100 mg PO TID PRN PRN Reason: Cough Last Admin: 04/04/19 21:14 Dose: 100 mg Enoxaparin Sodium (Lovenox) 40 mg SUBCUT DAILY [facility] Last Admin: 04/04/19 21:14 Dose: 40 mg Ceftriaxone Sodium 1 gm/ (Sodium Chloride) 50 mls @ 50 mls/hr IV DAILY [facility] Sodium Chloride (Normal Saline) 1,000 mls @ 100 mls/hr IV ASDIRECTED [facility] Last Admin: 04/04/19 21:14 Dose: 100 mls/hr Levothyroxine Sodium (Levothyroxine) 75 mcg PO ACBREAKFAST [facility] Lisinopril (Prinivil) 10 mg PO DAILY [facility] Non-Formulary Medication (D-Methorphan/Pe/Acetaminophen [Daytime Cold-Flu Relief Liquid]) 30 ml PO Q6H PRN PRN Reason: Congestion Ondansetron HCl (Zofran) 4 mg IV Q4H PRN PRN Reason: Nausea/Vomiting Rosuvastatin Calcium (Crestor) 10 mg PO DAILY [facility] Sodium Chloride (Saline Flush) 10 ml FLUSH ASDIRECTED PRN PRN Reason: Keep Vein Open Last Admin: 04/04/19 18:19 Dose: 10 ml Sodium Chloride (Saline Flush) 10 ml FLUSH ASDIRECTED PRN PRN Reason: Keep Vein Open Sodium Chloride (Saline Flush) 10 ml FLUSH ASDIRECTED PRN PRN Reason: Keep Vein Open Labs: Laboratory Tests 04/04/19 04/04/19 04/04/19 Range/Units 18:35 18:35 18:35 WBC 11.5 H (5.0-10.0) 10^3/uL RBC 4.46 L (4.6-6.2) 10^6/uL Hgb 13.6 L (14.0-18.0) g/dL Hct 40.7 (40.0-54.0) % MCV 91.3 (80-100) fL MCH 30.5 (27.0-34.0) pg MCHC 33.4 (33.0-35.0) g/dL Plt Count 218 (150-450) 10^3/uL Neut % (Auto) 68.7 (42.2-75.2) % Lymph % (Auto) 15.8 L (20.5-50.1) % [place] % (Auto) 11.2 H (2-8) % Eos % (Auto) 3.9 H (1.0-3.0) % Baso % (Auto) 0.4 (0.0-1.0) % Sodium 135 (135-145) mmol/L Potassium 3.8 (3.6-5.0) mmol/L Chloride 97 L (101-111) mmol/L Carbon Dioxide 28.0 (21.0-31.0) mmol/L Anion Gap 13.8 BUN 14 (7-18) mg/dL Creatinine 0.9 (0.6-1.3) mg/dL Est Cr Clr Drug Dosing 65.86 mL/min Estimated GFR (MDRD) > 60 BUN/Creatinine Ratio 15.55 Glucose 109 H (74-105) mg/dL Lactic Acid 1.1 (0.5-2.2) mmol/L Calcium 8.5 (8.4-10.2) mg/dl Total Bilirubin 0.6 (0.2-1.0) mg/dL AST 15 (10-42) IU/L ALT 9 L (10-60) IU/L Alkaline Phosphatase 54 (42-121) IU/L Troponin I < 0.02 (0.00-0.02) ng/ml B-Natriuretic Peptide 32 (0-100) pg/ml Total Protein 7.0 (6.7-8.2) g/dl Albumin 3.7 (3.2-5.5) g/dl Globulin 3.3 Albumin/Globulin Ratio 1.12 Urine Color (YELLOW) Urine Appearance (CLEAR) Urine pH (5.0-9.0) Ur Specific [place] (1.005-1.030) Urine Protein (NEGATIVE) Urine Glucose (UA) (NEGATIVE) Urine Ketones (NEGATIVE) Urine Occult Blood (NEGATIVE) Urine Nitrite (NEGATIVE) Urine Bilirubin (NEGATIVE) Urine Urobilinogen (0.2-1.0) mg/dL Ur Leukocyte Esterase (NEGATIVE) 04/04/19 Range/Units 19:38 WBC (5.0-10.0) 10^3/uL RBC (4.6-6.2) 10^6/uL Hgb (14.0-18.0) g/dL Hct (40.0-54.0) % MCV (80-100) fL MCH (27.0-34.0) pg MCHC (33.0-35.0) g/dL Plt Count (150-450) 10^3/uL Neut % (Auto) (42.2-75.2) % Lymph % (Auto) (20.5-50.1) % [place] % (Auto) (2-8) % Eos % (Auto) (1.0-3.0) % Baso % (Auto) (0.0-1.0) % Sodium (135-145) mmol/L Potassium (3.6-5.0) mmol/L Chloride (101-111) mmol/L Carbon Dioxide (21.0-31.0) mmol/L Anion Gap BUN (7-18) mg/dL Creatinine (0.6-1.3) mg/dL Est Cr Clr Drug Dosing mL/min Estimated GFR (MDRD) BUN/Creatinine Ratio Glucose (74-105) mg/dL Lactic Acid (0.5-2.2) mmol/L Calcium (8.4-10.2) mg/dl Total Bilirubin (0.2-1.0) mg/dL AST (10-42) IU/L ALT (10-60) IU/L Alkaline Phosphatase (42-121) IU/L Troponin I (0.00-0.02) ng/ml B-Natriuretic Peptide (0-100) pg/ml Total Protein (6.7-8.2) g/dl Albumin (3.2-5.5) g/dl Globulin Albumin/Globulin Ratio Urine Color Yellow (YELLOW) Urine Appearance Clear (CLEAR) Urine pH 5.5 (5.0-9.0) Ur Specific [place] <= 1.005 (1.005-1.030) Urine Protein Negative (NEGATIVE) Urine Glucose (UA) Negative (NEGATIVE) Urine Ketones Negative (NEGATIVE) Urine Occult Blood Negative (NEGATIVE) Urine Nitrite Negative (NEGATIVE) Urine Bilirubin Negative (NEGATIVE) Urine Urobilinogen 0.2 (0.2-1.0) mg/dL Ur Leukocyte Esterase Negative (NEGATIVE) Meds: Medications Generic Name Dose Route Start Last Admin Trade Name Alecia PRN Reason Stop Dose Admin Acetaminophen 650 mg 04/04/19 20:46 Tylenol PO Q4H PRN Pain/Fever Azithromycin 500 mg 04/04/19 21:00 04/04/19 21:14 Zithromax PO 500 mg BEDTIME [facility] Administration Benzonatate 100 mg 04/04/19 20:48 04/04/19 21:14 Tessalon Perles PO 100 mg TID PRN Administration Cough Enoxaparin Sodium 40 mg 04/04/19 20:47 04/04/19 21:14 Lovenox SUBCUT 40 mg DAILY [facility] Administration Ceftriaxone Sodium 1 gm/ 50 mls @ 50 mls/hr 04/05/19 09:00 Sodium Chloride IV DAILY [facility] Sodium Chloride 1,000 mls @ 100 mls/hr 04/04/19 21:00 04/04/19 21:14 Normal Saline IV 100 mls/hr ASDIRECTED [facility] Administration Levothyroxine Sodium 75 mcg 04/05/19 06:00 Levothyroxine PO ACBREAKFAST [facility] Lisinopril 10 mg 04/05/19 09:00 Prinivil PO DAILY [facility] Non-Formulary Medication 30 ml 04/04/19 20:48 D-Methorphan/Pe/Acetaminophen [Daytime Cold-Flu Relief Liquid] PO Q6H PRN Congestion Ondansetron HCl 4 mg 04/04/19 20:46 Zofran IV Q4H PRN Nausea/Vomiting Rosuvastatin Calcium 10 mg 04/05/19 09:00 Crestor PO DAILY [facility] Sodium Chloride 10 ml 04/04/19 18:15 04/04/19 18:19 Saline Flush FLUSH 10 ml ASDIRECTED PRN Administration Keep Vein Open Sodium Chloride 10 ml 04/04/19 20:47 Saline Flush FLUSH ASDIRECTED PRN Keep Vein Open Sodium Chloride 10 ml 04/04/19 20:47 Saline Flush FLUSH ASDIRECTED PRN Keep Vein Open Discontinued Medications Generic Name Dose Route Start Last Admin Trade Name Alecia PRN Reason Stop Dose Admin Albuterol/Ipratropium 3 ml 04/04/19 19:16 04/04/19 19:22 Duoneb 3.0-0.5 Mg/3 Ml NEB 04/04/19 19:17 3 ml ONETIME ONE Administration Ceftriaxone Sodium 1 gm/ 50 mls @ 50 mls/hr 04/04/19 20:13 04/04/19 20:21 Sodium Chloride IV 04/04/19 21:12 50 mls/hr ONETIME ONE Administration - Radiology Interpretation Free Text/Narrative:: CXR RML see report - Re-Assessments/Exams Free Text/Narrative Re-Assessment/Exam: Dr Abiel LEGER Hospitalist admitting. Departure - Departure Time of Disposition: 20:40 Condition: Good - Discharge Information *PRESCRIPTION DRUG MONITORING PROGRAM REVIEWED*: No *COPY OF PRESCRIPTION DRUG MONITORING REPORT IN PATIENT TK: No - My Orders Last 24 Hours: My Active Orders 04/04/19 19:15 CULTURE SPUTUM + SMEAR [RM] Stat 04/04/19 19:16 RT Aerosol Therapy [RC] ASDIRECTED - Assessment/Plan Last 24 Hours: My Active Orders 04/04/19 19:15 CULTURE SPUTUM + SMEAR [RM] Stat 04/04/19 19:16 RT Aerosol Therapy [RC] ASDIRECTED I have read and agree with the documentation that has been completed regarding this visit. By signing this record, I attest that the documentation was completed in my physical presence and is an accurate record of the encounter.
[2019-04-05] MEDS: Levothyroxine 75 MCG Tab PO SCH (06:44)
[2019-04-05 06:49] LABS: ANION GAP 11.7; CHLORIDE,CL 105 mmol/L (101-111); SODIUM,NA 139 mmol/L (135-145)
[2019-04-05] MEDS: Sodium Chloride 0.9% 1,000 ML IV SCH ×2 (06:49→16:30)
[2019-04-05] MEDS: Enoxaparin 40 MG/0.4 ML Syringe SUBCUT SCH (08:57)
[2019-04-05] MEDS: Lisinopril 10 MG Tab PO SCH (08:57)
[2019-04-05] MEDS: Rosuvastatin 10 MG Tab PO SCH (08:57)
[2019-04-05] MEDS ORDERED: cefTRIAXone 1 GM in Sodium Chloride 0.9% 50 ML IV SCH ×2 (09:00→21:00)
--- NOTE | 2019-04-05 09:23 | PCM.PN ---
- General Info Date of Service: 04/05/19 Admission Dx/Problem (Free Text): Admission Diagnosis/Problem Admission Diagnosis/Problem Pneumonia Subjective Update: I saw and examined the patient at the bedside Still coughing, not hypoxic - Review of Systems General: Denies: Fever HEENT: Reports: No Symptoms Pulmonary: Reports: Cough Cardiovascular: Reports: No Symptoms Gastrointestinal: Reports: No Symptoms Genitourinary: Reports: No Symptoms Musculoskeletal: Reports: No Symptoms Skin: Reports: No Symptoms Neurological: Reports: No Symptoms - Patient Data Vitals - Most Recent: Last Vital Signs Temp 36.3 C 04/05/19 08:11 Pulse 64 04/05/19 08:11 Resp 20 04/05/19 08:11 BP 141/69 H 04/05/19 08:57 Pulse Ox 93 L 04/05/19 08:11 Weight - Most Recent: 80.91 kg I&O - Last 24 Hours: Intake & Output 04/04/19 04/05/19 04/05/19 22:59 06:59 14:59 Intake Total 150 960 200 Balance 150 960 200 Lab Results Last 24 Hours: Laboratory Results - last 24 hr 04/04/19 04/04/19 04/04/19 Range/Units 18:35 18:35 18:35 WBC 11.5 H (5.0-10.0) 10^3/uL RBC 4.46 L (4.6-6.2) 10^6/uL Hgb 13.6 L (14.0-18.0) g/dL Hct 40.7 (40.0-54.0) % MCV 91.3 (80-100) fL MCH 30.5 (27.0-34.0) pg MCHC 33.4 (33.0-35.0) g/dL Plt Count 218 (150-450) 10^3/uL Neut % (Auto) 68.7 (42.2-75.2) % Lymph % (Auto) 15.8 L (20.5-50.1) % [place] % (Auto) 11.2 H (2-8) % Eos % (Auto) 3.9 H (1.0-3.0) % Baso % (Auto) 0.4 (0.0-1.0) % Sodium 135 (135-145) mmol/L Potassium 3.8 (3.6-5.0) mmol/L Chloride 97 L (101-111) mmol/L Carbon Dioxide 28.0 (21.0-31.0) mmol/L Anion Gap 13.8 BUN 14 (7-18) mg/dL Creatinine 0.9 (0.6-1.3) mg/dL Est Cr Clr Drug Dosing 65.86 mL/min Estimated GFR (MDRD) > 60 BUN/Creatinine Ratio 15.55 Glucose 109 H (74-105) mg/dL Lactic Acid 1.1 (0.5-2.2) mmol/L Calcium 8.5 (8.4-10.2) mg/dl Total Bilirubin 0.6 (0.2-1.0) mg/dL AST 15 (10-42) IU/L ALT 9 L (10-60) IU/L Alkaline Phosphatase 54 (42-121) IU/L Troponin I < 0.02 (0.00-0.02) ng/ml B-Natriuretic Peptide 32 (0-100) pg/ml Total Protein 7.0 (6.7-8.2) g/dl Albumin 3.7 (3.2-5.5) g/dl Globulin 3.3 Albumin/Globulin Ratio 1.12 Urine Color (YELLOW) Urine Appearance (CLEAR) Urine pH (5.0-9.0) Ur Specific [place] (1.005-1.030) Urine Protein (NEGATIVE) Urine Glucose (UA) (NEGATIVE) Urine Ketones (NEGATIVE) Urine Occult Blood (NEGATIVE) Urine Nitrite (NEGATIVE) Urine Bilirubin (NEGATIVE) Urine Urobilinogen (0.2-1.0) mg/dL Ur Leukocyte Esterase (NEGATIVE) 04/04/19 04/05/19 04/05/19 Range/Units 19:38 06:15 06:15 WBC 9.4 (5.0-10.0) 10^3/uL RBC 4.00 L (4.6-6.2) 10^6/uL Hgb 12.3 L (14.0-18.0) g/dL Hct 36.3 L (40.0-54.0) % MCV 90.8 (80-100) fL MCH 30.8 (27.0-34.0) pg MCHC 33.9 (33.0-35.0) g/dL Plt Count 190 (150-450) 10^3/uL Neut % (Auto) (42.2-75.2) % Lymph % (Auto) (20.5-50.1) % [place] % (Auto) (2-8) % Eos % (Auto) (1.0-3.0) % Baso % (Auto) (0.0-1.0) % Sodium 139 (135-145) mmol/L Potassium 3.7 (3.6-5.0) mmol/L Chloride 105 (101-111) mmol/L Carbon Dioxide 26.0 (21.0-31.0) mmol/L Anion Gap 11.7 BUN 11 (7-18) mg/dL Creatinine 0.8 (0.6-1.3) mg/dL Est Cr Clr Drug Dosing 74.10 mL/min Estimated GFR (MDRD) > 60 BUN/Creatinine Ratio Glucose 105 (74-105) mg/dL Lactic Acid (0.5-2.2) mmol/L Calcium 8.3 L (8.4-10.2) mg/dl Total Bilirubin (0.2-1.0) mg/dL AST (10-42) IU/L ALT (10-60) IU/L Alkaline Phosphatase (42-121) IU/L Troponin I (0.00-0.02) ng/ml B-Natriuretic Peptide (0-100) pg/ml Total Protein (6.7-8.2) g/dl Albumin (3.2-5.5) g/dl Globulin Albumin/Globulin Ratio Urine Color Yellow (YELLOW) Urine Appearance Clear (CLEAR) Urine pH 5.5 (5.0-9.0) Ur Specific [place] <= 1.005 (1.005-1.030) Urine Protein Negative (NEGATIVE) Urine Glucose (UA) Negative (NEGATIVE) Urine Ketones Negative (NEGATIVE) Urine Occult Blood Negative (NEGATIVE) Urine Nitrite Negative (NEGATIVE) Urine Bilirubin Negative (NEGATIVE) Urine Urobilinogen 0.2 (0.2-1.0) mg/dL Ur Leukocyte Esterase Negative (NEGATIVE) Med Orders - Current: Current Medications Acetaminophen (Tylenol) 650 mg PO Q4H PRN PRN Reason: Pain/Fever Azithromycin (Zithromax) 500 mg PO BEDTIME [facility] Last Admin: 04/04/19 21:14 Dose: 500 mg Benzonatate (Tessalon Perles) 100 mg PO TID PRN PRN Reason: Cough Last Admin: 04/04/19 21:14 Dose: 100 mg Enoxaparin Sodium (Lovenox) 40 mg SUBCUT DAILY [facility] Last Admin: 04/05/19 08:57 Dose: 40 mg Sodium Chloride (Normal Saline) 1,000 mls @ 100 mls/hr IV ASDIRECTED [facility] Last Admin: 04/05/19 06:49 Dose: 100 mls/hr Ceftriaxone Sodium 1 gm/ (Sodium Chloride) 50 mls @ 50 mls/hr IV DAILY@2100 [facility] Levothyroxine Sodium (Levothyroxine) 75 mcg PO ACBREAKFAST [facility] Last Admin: 04/05/19 06:44 Dose: 75 mcg Lisinopril (Prinivil) 10 mg PO DAILY [facility] Last Admin: 04/05/19 08:57 Dose: 10 mg Non-Formulary Medication (D-Methorphan/Pe/Acetaminophen [Daytime Cold-Flu Relief Liquid]) 30 ml PO Q6H PRN PRN Reason: Congestion Ondansetron HCl (Zofran) 4 mg IV Q4H PRN PRN Reason: Nausea/Vomiting Rosuvastatin Calcium (Crestor) 10 mg PO DAILY [facility] Last Admin: 04/05/19 08:57 Dose: 10 mg Sodium Chloride (Saline Flush) 10 ml FLUSH ASDIRECTED PRN PRN Reason: Keep Vein Open Last Admin: 04/04/19 18:19 Dose: 10 ml Sodium Chloride (Saline Flush) 10 ml FLUSH ASDIRECTED PRN PRN Reason: Keep Vein Open Sodium Chloride (Saline Flush) 10 ml FLUSH ASDIRECTED PRN PRN Reason: Keep Vein Open Discontinued Medications Albuterol/Ipratropium (Duoneb 3.0-0.5 Mg/3 Ml) 3 ml NEB ONETIME ONE Stop: 04/04/19 19:17 Last Admin: 04/04/19 19:22 Dose: 3 ml Ceftriaxone Sodium 1 gm/ (Sodium Chloride) 50 mls @ 50 mls/hr IV ONETIME ONE Stop: 04/04/19 21:12 Last Admin: 04/04/19 20:21 Dose: 50 mls/hr Ceftriaxone Sodium 1 gm/ (Sodium Chloride) 50 mls @ 50 mls/hr IV DAILY [facility] Last Admin: 04/05/19 09:08 Dose: Not Given - Exam General: Alert, Oriented HEENT: Pupils Equal, Pupils Reactive Neck: Supple Lungs: Clear to Auscultation. No: Stridor, Wheezing Cardiovascular: Regular Rate, Regular Rhythm GI/Abdominal Exam: Normal Bowel Sounds, Soft, Non-Tender, No Organomegaly Extremities: Normal Inspection, Normal Range of Motion, Non-Tender, No Pedal Edema - Problem List Review Problem List Initiated/Reviewed/Updated: Yes - My Orders Last 24 Hours: My Active Orders 04/04/19 20:46 Acetaminophen [Tylenol] 650 mg PO Q4H PRN Ondansetron [Zofran] 4 mg IV Q4H PRN 04/04/19 20:47 Enoxaparin [Lovenox] 40 mg SUBCUT DAILY Sodium Chloride 0.9% [Saline Flush] 10 ml FLUSH ASDIRECTED PRN Sodium Chloride 0.9% [Saline Flush] 10 ml FLUSH ASDIRECTED PRN Resuscitation Status Routine 04/04/19 20:48 Ambulate [RC] ASDIRECTED Height and Weight [RC] 0600 Oxygen Therapy [RC] PRN Peripheral IV Care [RC] . DIRECTED Up With Assistance [RC] ASDIRECTED VTE/DVT Education [RC] PER UNIT ROUTINE Vital Signs [RC] 00,04,08,12,16,20 Benzonatate [Tessalon Perles] 100 mg PO TID PRN D-Methorphan/PE/Acetaminophen [Daytime Cold-Flu Relief Liquid] 30 ml PO Q6H PRN Peripheral IV Insertion Adult [OM.PC] Routine Saline Lock Insert [OM.PC] Routine 04/04/19 21:00 Azithromycin [Zithromax] 500 mg PO BEDTIME Sodium Chloride 0.9% [Normal Saline] 1,000 ml IV ASDIRECTED 04/05/19 06:00 Levothyroxine 75 mcg PO ACBREAKFAST 04/05/19 09:00 Lisinopril [Prinivil] 10 mg PO DAILY Rosuvastatin [Crestor] 10 mg PO DAILY 04/05/19 21:00 cefTRIAXone [Rocephin] 1 gm Sodium Chloride 0.9% [Normal Saline] 50 ml IV DAILY@2100 04/06/19 05:11 BASIC METABOLIC PANEL,BMP [CHEM] AM CBC W/O DIFF,HEMOGRAM [HEME] AM 04/07/19 05:11 BASIC METABOLIC PANEL,BMP [CHEM] AM CBC W/O DIFF,HEMOGRAM [HEME] AM - Plan Plan:: #Community acquired pneumonia leucocytosis, RML opacity on CXR no fever, no hypoxia uncomplicated pneumonia f/u bld cx, sputum cx IV ceftriaxone + oral azithromycin IV fluid hydration monitor vital signs closely #HTN continue home meds: lisinopril #HLD continue statin #Hypothyroidism continue levothyroxine #DVT ppx SC lovenox Full code
[2019-04-05] MEDS: Benzonatate 100 MG Cap PO PRN (16:30)
[2019-04-05] MEDS: Azithromycin 250 MG Tab PO SCH (20:31)
[2019-04-06] MEDS: Sodium Chloride 0.9% 1,000 ML IV SCH (03:39)
[2019-04-06] MEDS: Levothyroxine 75 MCG Tab PO SCH (05:58)
[2019-04-06 06:57] LABS: ANION GAP 11.7; CHLORIDE,CL 107 mmol/L (101-111); SODIUM,NA 140 mmol/L (135-145)
[2019-04-06 07:47] VITALS: BP 141/64; PULSE 76
[2019-04-06] MEDS: Lisinopril 10 MG Tab PO SCH (09:44)
[2019-04-06] MEDS: Rosuvastatin 10 MG Tab PO SCH (09:44)
[2019-04-06] MEDS: Enoxaparin 40 MG/0.4 ML Syringe SUBCUT SCH (09:45)
--- NOTE | 2019-04-06 10:43 | PCM.DCSUM1 ---
Discharge Summary - Hospital Course Free Text/Narrative:: Patient admitted for community acquired pneumonia. Symptoms improved with abx. He is being discharged on PO abx. He will follow up with PCP in 5 days. Diagnosis: Stroke: No - Discharge Data Discharge Date: 04/06/19 Discharge Disposition: Home, Self-Care 01 Condition: Good - Referral to Home Health Primary Care Physician: Norris Weeks MD - Patient Instructions Diet: Heart Healthy Diet Showering/Bathing: October Shower Notify Provider of: Fever, Increased Pain, Swelling and Redness, Nausea and/or Vomiting - Discharge Plan *PRESCRIPTION DRUG MONITORING PROGRAM REVIEWED*: No *COPY OF PRESCRIPTION DRUG MONITORING REPORT IN PATIENT TK: No Prescriptions/Med Rec: Levofloxacin [Levaquin] 750 mg PO DAILY #7 tablet Home Medications: Home Meds Lisinopril [Prinivil] 10 mg PO DAILY 09/05/14 [History] Rosuvastatin Calcium [Crestor] 10 mg PO DAILY 09/05/14 [History] Levothyroxine 75 mcg PO ACBREAKFAST 07/17/17 [History] Benzonatate [Tessalon Perle] 100 mg PO DAILY 04/04/19 [History] D-Methorphan/PE/Acetaminophen [Daytime Cold-Flu Relief Liquid] 30 ml PO Q6H 01/14 [History] Levofloxacin [Levaquin] 750 mg PO DAILY #7 tablet 04/06/19 [Rx] Oxygen Therapy Mode: Room Air Patient Handouts: Levofloxacin tablets, Community-Acquired Pneumonia, Adult, [id number] Referrals: Charly Bertrand MD [Family Provider] - - Discharge Summary/Plan Comment DC Time >30 min.: Yes - Patient Data Vitals - Most Recent: Last Vital Signs Temp 97.7 F 04/06/19 07:46 Pulse 76 04/06/19 07:46 Resp 20 04/06/19 07:46 BP 141/64 H 04/06/19 09:44 Pulse Ox 94 L 04/06/19 07:46 Weight - Most Recent: 178 lb 4 oz I&O - Last 24 hours: Intake & Output 04/05/19 04/06/19 04/06/19 22:59 06:59 14:59 Intake Total 987 1048 Balance 987 1048 Lab Results - Last 24 hrs: Laboratory Results - last 24 hr 04/06/19 04/06/19 Range/Units 06:10 06:10 WBC 9.3 (5.0-10.0) 10^3/uL RBC 3.94 L (4.6-6.2) 10^6/uL Hgb 11.9 L (14.0-18.0) g/dL Hct 35.7 L (40.0-54.0) % MCV 90.6 (80-100) fL MCH 30.2 (27.0-34.0) pg MCHC 33.3 (33.0-35.0) g/dL Plt Count 198 (150-450) 10^3/uL Sodium 140 (135-145) mmol/L Potassium 3.7 (3.6-5.0) mmol/L Chloride 107 (101-111) mmol/L Carbon Dioxide 25.0 (21.0-31.0) mmol/L Anion Gap 11.7 BUN 8 (7-18) mg/dL Creatinine 0.8 (0.6-1.3) mg/dL Est Cr Clr Drug Dosing 74.10 mL/min Estimated GFR (MDRD) > 60 Glucose 91 (74-105) mg/dL Calcium 8.2 L (8.4-10.2) mg/dl AYANA Results - Last 24 hrs: Microbiology 04/04/19 18:35 Aerobic Blood Culture - Preliminary Blood - Venous - Lab Draw NO GROWTH AFTER 1 DAY Anaerobic Blood Culture - Preliminary NO GROWTH AFTER 1 DAY 04/04/19 18:15 Aerobic Blood Culture - Preliminary Blood - Venous NO GROWTH AFTER 1 DAY Anaerobic Blood Culture - Preliminary NO GROWTH AFTER 1 DAY Med Orders - Current: Current Medications Acetaminophen (Tylenol) 650 mg PO Q4H PRN PRN Reason: Pain/Fever Azithromycin (Zithromax) 500 mg PO BEDTIME [facility] Last Admin: 04/05/19 20:31 Dose: 500 mg Benzonatate (Tessalon Perles) 100 mg PO TID PRN PRN Reason: Cough Last Admin: 04/05/19 16:30 Dose: 100 mg Enoxaparin Sodium (Lovenox) 40 mg SUBCUT DAILY [facility] Last Admin: 04/06/19 09:45 Dose: Not Given Sodium Chloride (Normal Saline) 1,000 mls @ 100 mls/hr IV ASDIRECTED [facility] Last Admin: 04/06/19 03:39 Dose: 100 mls/hr Ceftriaxone Sodium 1 gm/ (Sodium Chloride) 50 mls @ 50 mls/hr IV DAILY@2100 [facility] Last Admin: 04/05/19 20:31 Dose: 50 mls/hr Levothyroxine Sodium (Levothyroxine) 75 mcg PO ACBREAKFAST [facility] Last Admin: 04/06/19 05:58 Dose: 75 mcg Lisinopril (Prinivil) 10 mg PO DAILY [facility] Last Admin: 04/06/19 09:44 Dose: 10 mg Non-Formulary Medication (D-Methorphan/Pe/Acetaminophen [Daytime Cold-Flu Relief Liquid]) 30 ml PO Q6H PRN PRN Reason: Congestion Ondansetron HCl (Zofran) 4 mg IV Q4H PRN PRN Reason: Nausea/Vomiting Rosuvastatin Calcium (Crestor) 10 mg PO DAILY [facility] Last Admin: 04/06/19 09:44 Dose: 10 mg Sodium Chloride (Saline Flush) 10 ml FLUSH ASDIRECTED PRN PRN Reason: Keep Vein Open Discontinued Medications Albuterol/Ipratropium (Duoneb 3.0-0.5 Mg/3 Ml) 3 ml NEB ONETIME ONE Stop: 04/04/19 19:17 Last Admin: 04/04/19 19:22 Dose: 3 ml Ceftriaxone Sodium 1 gm/ (Sodium Chloride) 50 mls @ 50 mls/hr IV ONETIME ONE Stop: 04/04/19 21:12 Last Admin: 04/04/19 20:21 Dose: 50 mls/hr Ceftriaxone Sodium 1 gm/ (Sodium Chloride) 50 mls @ 50 mls/hr IV DAILY [facility] Last Admin: 04/05/19 09:08 Dose: Not Given Sodium Chloride (Saline Flush) 10 ml FLUSH ASDIRECTED PRN PRN Reason: Keep Vein Open Last Admin: 04/04/19 18:19 Dose: 10 ml Sodium Chloride (Saline Flush) 10 ml FLUSH ASDIRECTED PRN PRN Reason: Keep Vein Open
== END 2019-04-06 11:21 | disposition home or self-care (01) ==
LOC: DL.ED 17:50 → DL.MS 20:11
PROVIDERS: ADMIT Hospitalist; ATTEND Hospitalist
DX: J18.9 Pneumonia, unspecified organism (principal); I10 Essential (primary) hypertension; E78.5 Hyperlipidemia, unspecified; E03.9 Hypothyroidism, unspecified; D72.829 Elevated white blood cell count, unspecified; Z88.8 Allergy status to other drugs, medicaments and biological substances; Z88.1 Allergy status to other antibiotic agents; Z79.899 Other long term (current) drug therapy
CPT/HCPCS: 36415; 71046; 80048; 80053; 81003; 83605; 83880; 84484; 85025; 85027; 87040; 93005; 94640; 96361; 96365; 96366; 96372; 99284-25; A9270-GY; G0008; G0378; J0696; J1650; J7030; J7050; J7620-GY

== ENCOUNTER 2020-05-16 21:21 | Emergency (ER) | payer MEDICARE, BC ==
[2020-05-16 21:44] VITALS: BP 184/90; PULSE 64
[2020-05-16 22:00] LABS: ANION GAP 9.6 mEq/L (7-13); CHLORIDE,CL 100 mmol/L (98-107); SODIUM,NA 139 mmol/L (136-145)
--- NOTE | 2020-05-16 22:02 | CR ---
PROCEDURE INFORMATION: Exam: XR Chest, 1 View Exam date and time: 05/16/2020 9:56 PM Age: 84 years old Clinical indication: Chest pain; Type not specified TECHNIQUE: Imaging protocol: XR of the chest Views: 1 view. COMPARISON: CR Chest 2V 04/04/2019 6:22 PM FINDINGS: Lungs: Unremarkable. No consolidation. Pleural space: Unremarkable. No pleural effusion. No pneumothorax. Heart/Mediastinum: Borderline cardiomegaly. Vasculature: Tortuous thoracic aorta. Bones/joints: Degenerative changes right shoulder. IMPRESSION: No acute process
[2020-05-16] MEDS ORDERED: Famotidine 20 MG/2 ML SDV IVPUSH ONE (22:34)
--- NOTE | 2020-05-16 22:40 | EDM.PDOC ---
ED HPI GENERAL MEDICAL PROBLEM - General Chief Complaint: Chest Pain Stated Complaint: CHEST PAIN Time Seen by Provider: 05/16/20 21:25 Source of Information: Reports: Patient, Family History Limitations: Reports: Altered Mental Status - History of Present Illness INITIAL COMMENTS - FREE TEXT/NARRATIVE: ED with c/o chest jayce per son. Patient points to area below left ribs and e pigastric area. Son states initially complained of pain in area after supper, tried gavison and seemed to relieve pain, then after taking patient home, called son because pain back. Reports hx f severe dementia, still living alone, family stops in to check and assists with meals. Generally poor appetite, no different tonight. No nausea or vomiting. Patient states normal bowel movments. No cough. no known fever or chills. Left Chest Pain Score (Numeric/FACES): 2 - Related Data Allergies Allergy/AdvReac Type Severity Reaction Status Date / Time iopamidol [From Isovue-M] Allergy Hives Verified 04/04/19 18:02 Tetracyclines Allergy Cannot Verified 04/04/19 18:02 Remember Home Meds: Home Meds Rosuvastatin Calcium [Crestor] 10 mg PO DAILY 09/05/14 [History] lisinopriL [Prinivil] 10 mg PO DAILY 09/05/14 [History] Levothyroxine 75 mcg PO ACBREAKFAST 07/17/17 [History] Benzonatate [Tessalon Perle] 100 mg PO DAILY 04/04/19 [History] D-Methorphan/PE/Acetaminophen [Daytime Cold-Flu Relief Liquid] 30 ml PO Q6H 04/04/19 [History] levoFLOXacin [Levaquin] 750 mg PO DAILY #7 tablet 04/06/19 [Rx] Past Medical History HEENT History: Reports: None Cardiovascular History: Reports: High Cholesterol, Hypertension Respiratory History: Reports: Bronchitis, Recurrent, Pneumonia, Recurrent Gastrointestinal History: Reports: None Genitourinary History: Reports: None Musculoskeletal History: Reports: None Neurological History: Reports: Other (See Below) Other Neuro History: dementia Psychiatric History: Reports: None Endocrine/Metabolic History: Reports: Hypothyroidism Hematologic History: Reports: None Immunologic History: Reports: None Oncologic (Cancer) History: Reports: None Dermatologic History: Reports: None - Infectious Disease History Infectious Disease History: Reports: None - Past Surgical History Head Surgeries/Procedures: Reports: None GI Surgical History: Reports: Hernia, Abdominal Social & Family History - Family History Family Medical History: No Pertinent Family History - Tobacco Use Tobacco Use Status *Q: Never Tobacco User Second Hand Smoke Exposure: No - Caffeine Use Caffeine Use: Reports: Coffee - Recreational Drug Use Recreational Drug Use: No - Living Situation & Occupation Living situation: Reports: , Alone Occupation: Retired ED ROS GENERAL - Review of Systems Review Of Systems: Comprehensive ROS is negative, except as noted in HPI. ED EXAM, GENERAL - Physical Exam Exam: See Below Exam Limited By: No Limitations General Appearance: Alert, No Apparent Distress, Mild Distress (with deep palpation) Ears: Hearing Loss Nose: Normal Inspection Throat/Mouth: Normal Inspection Head: Atraumatic, Normocephalic Neck: Normal Inspection Respiratory/Chest: No Respiratory Distress, Lungs Clear Cardiovascular: Normal Peripheral Pulses, Regular Rate, Rhythm GI/Abdominal: Normal Bowel Sounds, Soft, Tender (epigastric left upper) Extremities: Normal Range of Motion Neurological: Alert, Memory Loss Recent Events (baseline) Psychiatric: Flat Affect Skin Exam: Warm, Dry, Intact Course - Vital Signs Last Recorded V/S: Last Vital Signs Temp 97.8 F 05/16/20 21:25 Pulse 64 05/16/20 21:25 Resp 14 05/16/20 21:25 BP 184/90 H 05/16/20 21:25 Pulse Ox 98 05/16/20 21:25 - Orders/Labs/Meds Labs: Laboratory Tests 05/16/20 05/16/20 05/16/20 Range/Units 21:34 21:34 21:34 WBC 10.9 H (5.0-10.0) 10^3/uL RBC 4.62 (4.6-6.2) 10^6/uL Hgb 14.3 D (14.0-18.0) g/dL Hct 42.5 (40.0-54.0) % MCV 92.0 (80-100) fL MCH 31.0 (27.0-34.0) pg MCHC 33.6 (33.0-35.0) g/dL Plt Count 219 (150-450) 10^3/uL Neut % (Auto) 65.5 (42.2-75.2) % Lymph % (Auto) 20.2 L (20.5-50.1) % [place] % (Auto) 10.1 H (2-8) % Eos % (Auto) 3.9 H (1.0-3.0) % Baso % (Auto) 0.3 (0.0-1.0) % PT 10.5 (9.0-12.0) SEC INR 1.1 (0.9-1.2) Sodium 139 (136-145) mmol/L Potassium 3.6 (3.5-5.1) mmol/L Chloride 100 (98-107) mmol/L Carbon Dioxide 33 H (21-32) mmol/L Anion Gap 9.6 (7-13) mEq/L BUN 13 (7-18) mg/dL Creatinine 1.01 (0.70-1.30) mg/dL Est Cr Clr Drug Dosing 57.62 mL/min Estimated GFR (MDRD) > 60 BUN/Creatinine Ratio 12.9 (No establ ref range) Glucose 111 H (74-99) mg/dL Calcium 9.1 (8.5-10.1) mg/dL Total Bilirubin 0.4 (0.2-1.0) mg/dL AST 14 L (15-37) U/L ALT 15 L (16-63) U/L Alkaline Phosphatase 69 (46-116) U/L Troponin I < 0.017 (0.000-0.056) ng/mL B-Natriuretic Peptide 41 (0-100) pg/ml Total Protein 7.5 (6.4-8.2) g/dL Albumin 3.6 (3.4-5.0) g/dL Globulin 3.9 Albumin/Globulin Ratio 0.9 11/18/20 Range/Units 23:33 WBC (5.0-10.0) 10^3/uL RBC (4.6-6.2) 10^6/uL Hgb (14.0-18.0) g/dL Hct (40.0-54.0) % MCV (80-100) fL MCH (27.0-34.0) pg MCHC (33.0-35.0) g/dL Plt Count (150-450) 10^3/uL Neut % (Auto) (42.2-75.2) % Lymph % (Auto) (20.5-50.1) % [place] % (Auto) (2-8) % Eos % (Auto) (1.0-3.0) % Baso % (Auto) (0.0-1.0) % PT (9.0-12.0) SEC INR (0.9-1.2) Sodium (136-145) mmol/L Potassium (3.5-5.1) mmol/L Chloride (98-107) mmol/L Carbon Dioxide (21-32) mmol/L Anion Gap (7-13) mEq/L BUN (7-18) mg/dL Creatinine (0.70-1.30) mg/dL Est Cr Clr Drug Dosing mL/min Estimated GFR (MDRD) BUN/Creatinine Ratio (No establ ref range) Glucose (74-99) mg/dL Calcium (8.5-10.1) mg/dL Total Bilirubin (0.2-1.0) mg/dL AST (15-37) U/L ALT (16-63) U/L Alkaline Phosphatase (46-116) U/L Troponin I < 0.017 (0.000-0.056) ng/mL B-Natriuretic Peptide (0-100) pg/ml Total Protein (6.4-8.2) g/dL Albumin (3.4-5.0) g/dL Globulin Albumin/Globulin Ratio Meds: Medications Discontinued Medications Generic Name Dose Route Start Last Admin Trade Name Freq PRN Reason Stop Dose Admin Famotidine 20 mg 05/16/20 22:34 05/16/20 22:44 Pepcid IVPUSH 05/16/20 22:35 20 mg ONETIME ONE Administration Departure - Departure Time of Disposition: 00:16 Disposition: Home, Self-Care 01 Condition: Good Clinical Impression: Abdominal pain Qualifiers: Abdominal location: left upper quadrant Qualified Code(s): R10.12 - Left upper quadrant pain - Discharge Information *PRESCRIPTION DRUG MONITORING PROGRAM REVIEWED*: No *COPY OF PRESCRIPTION DRUG MONITORING REPORT IN PATIENT TK: No Instructions: Abdominal Pain, Adult, [id number] Forms: ED Department Discharge Additional Instructions: Clinic recheck if not improving Urgent followup increased severity, vomiting fever, radiation of pain myralax one capful daily as needed for stool softener, increase fruit in diet Sepsis Event Note (ED) - Evaluation Sepsis Screening Result: No Definite Risk - Focused Exam Vital Signs: Vital Signs Temp Pulse Resp BP Pulse Ox 05/16/20 21:25 97.8 F 64 14 184/90 H 98
--- NOTE | 2020-05-16 22:57 | CR ---
PROCEDURE INFORMATION: Exam: XR Abdomen, 1 View Exam date and time: 05/16/2020 10:47 PM Age: 84 years old Clinical indication: Abdominal pain; Epigastric; Additional info: Epigastri pain TECHNIQUE: Imaging protocol: XR of the abdomen. Views: Frontal supine view of the abdomen. 1 View. COMPARISON: No relevant prior studies available. FINDINGS: Gastrointestinal tract: Nonspecific bowel gas pattern. No small bowel dilation. Bones/joints: Moderate degenerative bone changes. A Soft tissues: Soft tissues are normal. Multiple monitoring leads overlie the thorax. IMPRESSION: Nonspecific bowel gas pattern
== END 2020-05-17 00:14 | disposition home or self-care (01) ==
LOC: DL.ED 21:21
DX: R10.12 Left upper quadrant pain (principal); E78.00 Pure hypercholesterolemia, unspecified; I10 Essential (primary) hypertension; E03.9 Hypothyroidism, unspecified; Z88.1 Allergy status to other antibiotic agents; Z88.8 Allergy status to other drugs, medicaments and biological substances; Z79.899 Other long term (current) drug therapy
CPT/HCPCS: 36415; 71045; 74018; 80053; 83880; 84484; 85025; 85610; 93005; 96374; 99285-25; J3490

== ENCOUNTER 2021-09-23 22:07 | Emergency (ER) | payer MEDICARE, BC ==
[2021-09-23 22:50] VITALS: BP 133/75; PULSE 73
[2021-09-23 23:44] LABS: ANION GAP 3.6 mEq/L (7-13); CHLORIDE,CL 98 mmol/L (98-107); SODIUM,NA 127 mmol/L (136-145)
[2021-09-24] MEDS ORDERED: Amoxicillin/Clavulanate K 875-125 MG Tab PO ONE (00:04)
== END 2021-09-24 00:24 | disposition home or self-care (01) ==
LOC: DL.ED 22:07
DX: J06.9 Acute upper respiratory infection, unspecified (principal); E78.00 Pure hypercholesterolemia, unspecified; I10 Essential (primary) hypertension; E03.9 Hypothyroidism, unspecified; Z91.041 Radiographic dye allergy status; Z88.1 Allergy status to other antibiotic agents; Z79.899 Other long term (current) drug therapy
CPT/HCPCS: 36415; 71045; 80053; 81001; 83605; 83880; 85025; 87040; 99285; A9270; 99283